=== PATIENT | female | born 1995 ===

== ENCOUNTER 2024-12-08 21:57 | Emergency (ER) | payer OTHER ==
[~2024-12-08] VITALS: Ht 167.6 cm; Wt 70.3 kg
== END 2024-12-09 00:04 | disposition home or self-care (01) ==
LOC: ER 21:57
DX: S01.511A Laceration without foreign body of lip, initial encounter (principal); W16.112A Fall into natural body of water striking water surface causing other injury, initial encounter
CPT/HCPCS: 90715